=== PATIENT | male | born 1945 | race Caucasian/White ===

== ENCOUNTER 2016-12-07 14:03 | Observation (INO) | payer MEDICARE, OTHER ==
[2016-12-07] MEDS ORDERED: ASPIRIN 81 MG TABLET, CHEWABLE PO ONE (14:13)
[2016-12-07 14:34] LABS: ABSOLUTE EOSINOPHILS # (AUTO) 0.2 10^3/uL (0.0-0.6); ABSOLUTE LYMPHOCYTES (AUTO) 1.3 10^3/uL (0.5-4.7); ABSOLUTE MONOCYTES (AUTO) 0.4 10^3/uL (0.1-1.4); ABSOLUTE NEUT (AUTO) 3.2 10^3/uL (1.7-8.2); BASOPHILS % (AUTO) 0.9 % (0-2); EOSINOPHILS % (AUTO) 4.8 % (0-6); HEMATOCRIT 37.6 % (37.9-51.0); HEMOGLOBIN 13.4 g/dL (13.5-17.0); HGB HCT DIFFERENCE 2.6; LYMPHOCYTES % (AUTO) 24.6 % (13-45); MEAN CORPUSCULAR HEMOGLOBIN 28.6 pg (27.0-33.4); MEAN CORPUSCULAR HGB CONC 35.5 g/dL (32.0-36.0); MEAN CORPUSCULAR VOLUME 80 fl (80-97); RED BLOOD COUNT 4.68 10^6/uL (4.35-5.55); RED CELL DISTRIBUTION WIDTH 13.1 % (11.5-14.0); SEGMENTED NEUTROPHILS % (AUTO) 61.7 % (42-78); WHITE BLOOD COUNT 5.2 10^3/uL (4.0-10.5)
[2016-12-07] MEDS ORDERED: NITROGLYCERIN 2% OINTMENT 1 GM PACKET TP ONE (14:39)
[2016-12-07 14:45] LABS: ALANINE AMINOTRANSFERASE 41 U/L (21-72); ALBUMIN 4.3 g/dL (3.5-5.0); ALKALINE PHOSPHATASE 103 U/L (38-126); ANION GAP 10 (5-19); ASPARTATE AMINO TRANSFERASE 39 U/L (17-59); BILIRUBIN,DIRECT 0.5 mg/dL (0.0-0.4); BLOOD UREA NITROGEN 19 mg/dL (7-20); CALCIUM 9.7 mg/dL (8.4-10.2); CARBON DIOXIDE 33 mmol/L (22-30); CHLORIDE 98 mmol/L (98-107); CREATINE KINASE 95 U/L (55-170); CREATININE RESULT 0.85 mg/dL (0.52-1.25); GLUCOSE 104 mg/dL (75-110); POTASSIUM 3.5 mmol/L (3.6-5.0); SODIUM 140.8 mmol/L (137-145); TOTAL PROTEIN 7.5 g/dL (6.3-8.2)
--- NOTE | 2016-12-07 14:45 | ER Document Report ---
ED Medical Screen (RME) - General Chief Complaint: Chest Pain Stated Complaint: CHEST PAIN Time Seen by Provider: 12/07/16 14:39 TRAVEL OUTSIDE OF THE [place] IN LAST 30 DAYS: No - HPI Patient complains to provider of: CP Onset: Other - Pt with intermittent SSCP times 4 days (had cath 2 yrs ago and was told had some blockages but no stents placed) -- sees Dr. Virgen in [place]. Today, chest tightness got worse and did not resolve despite ASA taken. Denies SOB, N,V, diaphoresis. - Related Data Allergies/Adverse Reactions: No Known Allergies Allergy (Verified 12/07/16 14:27) Home Medications: Current Home Medications Aspirin [Aspirin 81 mg Chewable Tablet] 81 mg PO DAILY 12/07/16 [History] Atenolol/Chlorthalidone [Atenolol-Chlorthalidone 50-25] 1 tab PO DAILY 12/07/16 [History] Esomeprazole Magnesium [Nexium 24Hr] 22.3 mg PO DAILY 12/07/16 [History] Losartan Potassium [Losartan Potassium] 100 mg PO DAILY 12/07/16 [History] Meloxicam [Mobic 15 mg Tablet] 15 mg PO DAILY 12/07/16 [History] [place]-3 Fatty Acids/Fish Oil [Fish Oil 1,000 Mg Capsule] 1 each PO DAILY [History] Potassium Chloride 10 meq PO DAILY 12/07/16 [History] Past Medical History - General Information source: Patient, Relative - Social History Cigarette use (# per day): No Chew tobacco use (# tins/day): No Frequency of alcohol use: None Drug Abuse: None Family history: None - Past Medical History Cardiac Medical History: Reports: Hx Hypertension Renal/ Medical History: Denies: Hx Peritoneal Dialysis GI Medical History: Reports: Hx Gastroesophageal Reflux Disease Past Surgical History: Reports: Hx Appendectomy, Hx Cardiac Catheterization, Hx Cholecystectomy, Hx Orthopedic Surgery - Immunizations Hx Diphtheria, Pertussis, Tetanus Vaccination: No Review of Systems - Review of Systems Constitutional: No symptoms reported EENT: No symptoms reported Cardiovascular: See HPI, Chest pain Respiratory: No symptoms reported Gastrointestinal: No symptoms reported Musculoskeletal: No symptoms reported Hematologic/Lymphatic: No symptoms reported Neurological/Psychological: No symptoms reported -: Yes All other systems reviewed and negative Physical Exam - Vital signs Vitals: Temp Pulse Resp BP Pulse Ox 97.9 F 65 19 168/86 H 98 12/07/16 14:20 12/07/16 14:20 12/07/16 14:20 12/07/16 14:20 12/07/16 14:20 - General General appearance: Appears well In distress: None - Respiratory Respiratory status: No respiratory distress Chest status: Nontender Breath sounds: Normal Chest palpation: Normal - Cardiovascular Rhythm: Regular Heart sounds: Normal auscultation - Abdominal Inspection: Normal Distension: No distension Bowel sounds: Normal Tenderness: Nontender - Neurological Neuro grossly intact: Yes Cognition: Normal Course - Re-evaluation Re-evalutation: 12/07/16 15:21 Pt. feels somewhat better after NTG ointment -- I will call hospitalist for admission - Vital Signs Vital signs: Temp Pulse Resp BP Pulse Ox 97.9 F 65 19 168/86 H 98 12/07/16 14:20 12/07/16 14:20 12/07/16 14:20 12/07/16 14:20 12/07/16 14:20 - Laboratory Result Diagrams: 12/07/16 14:17 12/07/16 14:17 Laboratory results interpreted by me: 12/07/16 12/07/16 14:17 14:17 Hgb 13.4 L Hct 37.6 L Plt Count 137 L Potassium 3.5 L Carbon Dioxide 33 H Direct Bilirubin 0.5 H - Diagnostic Test Radiology reviewed: Pending - EKG Interpretation by [place] EKG shows normal: Sinus rhythm Rate: Normal Rhythm: NSR When compared to previous EKG there are: No significant change - Consults Dr. manzanares Time consulted: 15:22 Consulted provider: will come to ER Critical Care Note - Critical Care Note Total time excluding time spent on procedures (mins): 30 Doctor's Discharge - Discharge Clinical Impression: Chest pain Qualifiers: Chest pain type: unspecified Qualified Code(s): R07.9 - Chest pain, unspecified Condition: Stable Disposition: ADMITTED OBSERVATION
[2016-12-07 14:59] LABS: CREATINE KINASE MB 0.56 ng/mL (<4.55)
[2016-12-07 15:01] LABS: TROPONIN I < 0.012 ng/mL
[2016-12-07] MEDS ORDERED: NITROGLYCERIN 0.4 MG/TAB 25 TAB/BOTTLE SL PRN (15:25)
[2016-12-07] MEDS ORDERED: MAG HYDROX/AL HYDROX/SIMETH SUSP 30 ML UDCUP PO PRN (15:25)
[2016-12-07] MEDS ORDERED: MORPHINE SULFATE 10 MG/ML INJ IV PRN (15:25)
[2016-12-07] MEDS ORDERED: DIAZEPAM 5 MG TABLET PO PRN (15:25)
[2016-12-07] MEDS ORDERED: ONDANSETRON HCL INJ/PF 4 MG/2 ML SDV IV PRN (15:25)
[2016-12-07] MEDS ORDERED: POTASSIUM CHLORIDE 10 MEQ TABLET.SA PO ONE (16:00)
--- NOTE | 2016-12-07 16:01 | RADIOLOGY REPORT (SQ) ---
EXAM DESCRIPTION: CHEST SINGLE VIEW COMPLETED DATE/TIME: 12/07/2016 2:45 pm REASON FOR STUDY: CP COMPARISON: 05/17/2012 EXAM PARAMETERS: NUMBER OF VIEWS: One view. TECHNIQUE: Single frontal radiographic view of the chest acquired. RADIATION DOSE: NA LIMITATIONS: None. FINDINGS: LUNGS AND PLEURA: No opacities, masses or pneumothorax. No pleural effusion. MEDIASTINUM AND HILAR STRUCTURES: No masses. Contour normal. HEART AND VASCULAR STRUCTURES: Heart normal in size. Normal vasculature. BONES: No acute findings. HARDWARE: None in the chest. OTHER: No other significant finding. IMPRESSION: NO ACUTE RADIOGRAPHIC FINDING IN THE CHEST. TECHNICAL DOCUMENTATION: JOB ID: [id number]
--- NOTE | 2016-12-07 16:12 | ER Document Report ---
ED Cardiac - General Chief Complaint: Chest Pain Stated Complaint: CHEST PAIN Time Seen by Provider: 12/07/16 14:39 Mode of Arrival: Ambulatory TRAVEL OUTSIDE OF THE [place] IN LAST 30 DAYS: No - HPI Patient complains to provider of: Chest tightness - pt c/o chest tightness for the past 4 days - Related Data Allergies/Adverse Reactions: No Known Allergies Allergy (Verified 12/07/16 14:27) Home Medications: Current Home Medications Aspirin [Aspirin 81 mg Chewable Tablet] 81 mg PO DAILY 12/07/16 [History] Atenolol/Chlorthalidone [Atenolol-Chlorthalidone 50-25] 1 tab PO DAILY 12/07/16 [History] Ergocalciferol (Vitamin D2) [Drisdol 50,000 unit (1.25MG) Capsule] 50,000 unit PO TU@1000 12/07/16 [History] Esomeprazole Magnesium [Nexium 24Hr] 22.3 mg PO DAILY 12/07/16 [History] Losartan Potassium [Losartan Potassium] 100 mg PO DAILY 12/07/16 [History] Meloxicam [Mobic 15 mg Tablet] 15 mg PO DAILY 12/07/16 [History] [place]-3 Fatty Acids/Fish Oil [Fish Oil 1,000 Mg Capsule] 1 each PO DAILY [History] Potassium Chloride 10 meq PO DAILY 12/07/16 [History] Past Medical History - General Information source: Patient, Relative - Social History Smoking Status: Never Smoker Chew tobacco use (# tins/day): No Frequency of alcohol use: None Drug Abuse: None Family History: None Patient has suicidal ideation: No Patient has homicidal ideation: No - Past Medical History Cardiac Medical History: Reports: Hx Hypertension Renal/ Medical History: Denies: Hx Peritoneal Dialysis GI Medical History: Reports: Hx Gastroesophageal Reflux Disease Past Surgical History: Reports: Hx Appendectomy, Hx Cardiac Catheterization, Hx Cholecystectomy, Hx Orthopedic Surgery - Immunizations Hx Diphtheria, Pertussis, Tetanus Vaccination: No Review of Systems - Review of Systems Constitutional: No symptoms reported EENT: No symptoms reported Cardiovascular: See HPI, Chest pain Respiratory: No symptoms reported Physical Exam - Vital signs Vitals: Temp Pulse Resp BP Pulse Ox 97.9 F 65 19 168/86 H 98 12/07/16 14:20 12/07/16 14:20 12/07/16 14:20 12/07/16 14:20 12/07/16 14:20 - General General appearance: Appears well In distress: None - Respiratory Respiratory status: No respiratory distress Breath sounds: Normal - Cardiovascular Rhythm: Regular Heart sounds: Normal auscultation - Abdominal Inspection: Normal Tenderness: Nontender Course - Re-evaluation Re-evalutation: 12/07/16 16:10 pt. feels better after nitropaste -- will call hospitalist for admission - Vital Signs Vital signs: Temp Pulse Resp BP Pulse Ox 97.9 F 65 22 H 150/75 H 95 12/07/16 14:20 12/07/16 14:20 12/07/16 15:02 12/07/16 15:02 12/07/16 15:02 - Laboratory Result Diagrams: 12/07/16 14:17 12/07/16 14:17 Laboratory results interpreted by me: 12/07/16 12/07/16 14:17 14:17 Hgb 13.4 L Hct 37.6 L Plt Count 137 L Potassium 3.5 L Carbon Dioxide 33 H Direct Bilirubin 0.5 H - Diagnostic Test Radiology reviewed: Pending - EKG Interpretation by [place] EKG shows normal: Sinus rhythm Rate: Normal Rhythm: NSR - Consults Dr. manzanares Time consulted: 16:11 Consulted provider: will come to ER Critical Care Note - Critical Care Note Total time excluding time spent on procedures (mins): 30 Discharge - Discharge Clinical Impression: Chest pain Qualifiers: Chest pain type: unspecified Qualified Code(s): R07.9 - Chest pain, unspecified Condition: Stable Disposition: ADMITTED OBSERVATION Referrals: ROSEANNA MCCABE MD [Primary Care Provider] - Follow up as needed
[2016-12-07] MEDS ORDERED: NORMAL SALINE 1000 ML 1,000 ML IV PRN (16:16)
--- NOTE | 2016-12-07 16:22 | PDOC H&P ---
History of Present Illness Admission Date/PCP: 12/07/16 ros History of Present Illness: SAI SPENCE is a 71 year old male with a PMH of HTN, BPH, Gerd who presents to the emergency department with chest pain. Patient reports that Thursday night while he was sleeping he had some chest pain that woke him up it was sharp substernal and did not radiate. He reports he went back to sleep. In the morning he felt some slight tightness in his chest. He reports this discomfort did not radiate, it was not exacerbated or alleviated by anything. He reports that it occasionally improved on its own and occasionally he would have some additional sharp pains with it. He denied any associated shortness of breath, diaphoresis, nausea, vomiting. He denies any changes to his medications. He does report that he feels his GERD is in adequately controlled. He does report he gets up 3 or 4 times a night to go to the bathroom and initially began taking a [id number] prostate supplement. His last cardiac catheterization was in 2014 and he has never had a stent placed. reports concerns about his perseveration about his illnesses. 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 GI Medical History: Reports: Gastroesophageal Reflux Disease Past Surgical History Past Surgical History: Reports: Appendectomy, Cardiac Catheterization, Cholecystectomy, Orthopedic Surgery, Tonsillectomy, Other - Left eye enucleation Social History Smoking Status: Never Smoker Frequency of Alcohol Use: Rare Hx Recreational Drug Use: No Hx Prescription Drug Abuse: No - Advance Directive Resuscitation Status: Full Code Surrogate healthcare decision maker:: , Q[place] Family History Family History: CAD, Hypertension, Malignancy Parental Family History Reviewed: Yes Children Family History Reviewed: Yes Sibling(s) Family History Reviewed.: Yes Medication/Allergy Home Medications: Aspirin [Aspirin 81 mg Chewable Tablet] 81 mg PO DAILY 12/07/16 Atenolol/Chlorthalidone [Atenolol-Chlorthalidone 50-25] 1 tab PO DAILY 12/07/16 Ergocalciferol (Vitamin D2) [Drisdol 50,000 unit (1.25MG) Capsule] 50,000 unit PO TU@1000 12/07/16 Esomeprazole Magnesium [Nexium 24Hr] 22.3 mg PO DAILY 12/07/16 Losartan Potassium [Losartan Potassium] 100 mg PO DAILY 12/07/16 Meloxicam [Mobic 15 mg Tablet] 15 mg PO DAILY 12/07/16 [place]-3 Fatty Acids/Fish Oil [Fish Oil 1,000 Mg Capsule] 1 each PO DAILY Potassium Chloride 10 meq PO DAILY 12/07/16 Allergies/Adverse Reactions: No Known Allergies Allergy (Verified 12/07/16 14:27) Review of Systems Constitutional: ABSENT: chills, fever(s), headache(s), weight gain, weight loss Eyes: ABSENT: visual disturbances Ears: ABSENT: hearing changes Cardiovascular: PRESENT: chest pain. ABSENT: dyspnea on exertion, edema, orthropnea, palpitations Respiratory: ABSENT: cough, dyspnea, hemoptysis, sputum Gastrointestinal: ABSENT: abdominal pain, constipation, diarrhea, hematemesis, hematochezia, melena, nausea, vomiting Genitourinary: PRESENT: difficulty urinating, nocturia. ABSENT: dysuria, hematuria Musculoskeletal: ABSENT: joint swelling Integumentary: ABSENT: rash, wounds Neurological: ABSENT: abnormal gait, abnormal speech, confusion, dizziness, focal weakness, syncope Psychiatric: PRESENT: anxiety. ABSENT: depression, homidical ideation, suicidal ideation Endocrine: ABSENT: cold intolerance, heat intolerance, polydipsia, polyuria Hematologic/Lymphatic: ABSENT: easy bleeding, easy bruising Physical Exam Vital Signs: Temp Pulse Resp BP Pulse Ox 97.9 F 65 19 168/86 H 98 12/07/16 14:20 12/07/16 14:20 12/07/16 14:20 12/07/16 14:20 12/07/16 14:20 Intake & Output 12/06/16 12/07/16 12/08/16 06:59 06:59 06:59 Weight 115.666 kg General appearance: PRESENT: no acute distress, well-developed, well-nourished Head exam: PRESENT: atraumatic, normocephalic Eye exam: PRESENT: conjunctiva pink, EOMI. ABSENT: PERRLA - Left eye is glass, scleral icterus Ear exam: PRESENT: normal external ear exam Mouth exam: PRESENT: dry mucosa, tongue midline Neck exam: ABSENT: JVD, lymphadenopathy, thyromegaly, tracheal deviation Respiratory exam: PRESENT: clear to auscultation zara, symmetrical, unlabored. ABSENT: rales, rhonchi, wheezes Cardiovascular exam: PRESENT: RRR, +S1, +S2. ABSENT: diastolic murmur, rubs, systolic murmur Pulses: PRESENT: normal dorsalis pedis pul Vascular exam: PRESENT: normal capillary refill GI/Abdominal exam: PRESENT: normal bowel sounds, soft. ABSENT: distended, firm , guarding, mass, Ramírez's sign, organolmegaly, rebound, tenderness Rectal exam: PRESENT: deferred Extremities exam: PRESENT: full ROM. ABSENT: calf tenderness, clubbing, pedal edema Neurological exam: PRESENT: alert, awake, oriented to person, oriented to place , oriented to time, oriented to situation, CN II-XII grossly intact. ABSENT: motor sensory deficit Psychiatric exam: PRESENT: anxious, appropriate affect. ABSENT: homicidal ideation, suicidal ideation Skin exam: PRESENT: dry, intact, warm. ABSENT: cyanosis, rash Results Laboratory Results: 12/07/16 14:17 12/07/16 14:17 12/07/16 12/07/16 14:17 14:17 WBC 5.2 RBC 4.68 Hgb 13.4 L Hct 37.6 L MCV 80 MCH 28.6 MCHC 35.5 RDW 13.1 Plt Count 137 L Seg Neutrophils % 61.7 Lymphocytes % 24.6 Monocytes % 8.0 Eosinophils % 4.8 Basophils % 0.9 Absolute Neutrophils 3.2 Absolute Lymphocytes 1.3 Absolute Monocytes 0.4 Absolute Eosinophils 0.2 Absolute Basophils 0.0 Sodium 140.8 Potassium 3.5 L Chloride 98 Carbon Dioxide 33 H Anion Gap 10 BUN 19 Creatinine 0.85 Est GFR ( Amer) > 60 Est GFR (Non-Af Amer) > 60 Glucose 104 Calcium 9.7 Total Bilirubin 1.0 AST 39 ALT 41 Alkaline Phosphatase 103 Total Protein 7.5 Albumin 4.3 12/07/16 12/07/16 14:17 14:17 Creatine Kinase 95 CK-MB (CK-2) 0.56 Troponin I < 0.012 Assessment & Plan - Diagnosis (1) Chest pain Qualifiers: Chest pain type: unspecified Qualified Code(s): R07.9 - Chest pain, unspecified Is this a current diagnosis for this admission?: Yes Plan: Place patient on observation. Patient reports his last cardiac catheterization was 2 years ago. He did not have any stents placed at that time. Continue patient on aspirin, atenolol, Cozaar and plot cardiac enzymes. Place patient for stress test. (2) GERD (gastroesophageal reflux disease) Qualifiers: Esophagitis presence: esophagitis presence not specified Qualified Code(s) : K21.9 - Gastro-esophageal reflux disease without esophagitis Is this a current diagnosis for this admission?: Yes Plan: Patient reports he does not feel this is adequately controlled. Will give GI cocktail 1. Will increase to PPI twice daily (3) ELENI (obstructive sleep apnea) Is this a current diagnosis for this admission?: Yes Plan: Patient is noncompliant with CPAP (4) BPH (benign prostatic hyperplasia) Qualifiers: Lower urinary tract symptom presence: symptoms present Lower urinary tract symptom detail: nocturia Qualified Code(s): N40.1 - Benign prostatic hyperplasia with lower urinary tract symptoms; R35.1 - Nocturia Is this a current diagnosis for this admission?: Yes Plan: Will initiate patient on Flomax and if his blood pressure remains uncontrolled Cardura. (5) HTN (hypertension) Qualifiers: Hypertension type: essential hypertension Qualified Code(s): I10 - Essential (primary) hypertension Is this a current diagnosis for this admission?: Yes Plan: Patient is on atenolol and Cozaar as well as chlorthalidone. He is poorly controlled and will consider the at addition of Cardura (6) Anxiety about health Is this a current diagnosis for this admission?: Yes Plan: Give patient 1 time dose of Valium now - Time Time Spent: 50 to 70 Minutes Medications reviewed and adjusted accordingly: Yes Anticipated discharge: Home Within: within 24 hours - Inpatient Certification Based on my medical assessment, after consideration of the patient's comorbidities, presenting symptoms, or acuity I expect that the services needed warrant INPATIENT care.: No I certify that my determination is in accordance with my understanding of Medicare's requirements for reasonable and necessary INPATIENT services [42 CFR 412.3e].: No Medical Necessity: Need For Continuous Telemetry Monitoring Post Hospital Care: D/C Newswriter Documentation
[2016-12-07] MEDS ORDERED: LIDOCAINE 2% VISCOUS SOLN 20 ML UDCUP PO ONE (16:30)
[2016-12-07] MEDS ORDERED: METOCLOPRAMIDE HCL ORAL SOLN 10 MG/10 ML UDCUP PO ONE (16:30)
[2016-12-07] MEDS ORDERED: LANSOPRAZOLE 30 MG TAB.RAP.DR PO ONE (16:30)
[2016-12-07] MEDS ORDERED: DIAZEPAM 5 MG TABLET PO ONE (16:30)
[2016-12-07] MEDS ORDERED: MAG HYDROX/AL HYDROX/SIMETH SUSP 30 ML UDCUP PO ONE (16:30)
[2016-12-07] MEDS ORDERED: MAGNESIUM SULFATE/D5W 1 GM/100 ML RTUPB IV ONE (16:45)
[2016-12-07 21:27] LABS: CREATINE KINASE MB 0.49 ng/mL (<4.55)
[2016-12-07 21:31] LABS: TROPONIN I < 0.012 ng/mL
[2016-12-07] MEDS ORDERED: ATORVASTATIN CALCIUM 80 MG TABLET PO SCH (22:00)
--- NOTE | 2016-12-07 23:38 | EKG REPORT ---
SEVERITY:- NORMAL ECG - SINUS RHYTHM : Confirmed by: Julio Henao 07-Dec-2016 23:37:38
[2016-12-08 03:32] LABS: CREATINE KINASE MB 0.27 ng/mL (<4.55)
[2016-12-08 03:35] LABS: TROPONIN I < 0.012 ng/mL
[2016-12-08 06:38] LABS: CHOLESTEROL 148.12 mg/dL (0-200); CREATINE KINASE 64 U/L (55-170); Direct HDL 25 mg/dL (>40); TRIGLYCERIDES 236 mg/dL (<150)
[2016-12-08 06:49] LABS: DIRECT LDL 70 mg/dL (<100)
[2016-12-08 06:53] LABS: VLDL CHOLESTEROL 47.2 mg/dL (10-31)
[2016-12-08 09:08] LABS: CREATINE KINASE MB 0.23 ng/mL (<4.55)
--- NOTE | 2016-12-08 09:13 | EKG REPORT ---
SEVERITY:- ABNORMAL ECG - SINUS RHYTHM FIRST DEGREE AV BLOCK : Confirmed by: Clive Hampton MD 08-Dec-2016 09:12:33
[2016-12-08 09:27] LABS: TROPONIN I < 0.012 ng/mL
[2016-12-08] MEDS ORDERED: KETOROLAC TROMETHAMINE INJ/PF 30 MG/1 ML SDV IV ONE (09:42)
[2016-12-08] MEDS ORDERED: ASPIRIN 325 MG TABLET, ENT COATED PO SCH (10:00)
[2016-12-08] MEDS ORDERED: POTASSIUM CHLORIDE 10 MEQ TABLET.SA PO SCH (10:00)
[2016-12-08] MEDS ORDERED: ASPIRIN 81 MG TABLET, CHEWABLE PO SCH (10:00)
[2016-12-08] MEDS ORDERED: LANSOPRAZOLE 15 MG TAB.RAP.DR PO SCH (10:00)
[2016-12-08] MEDS ORDERED: ESOMEPRAZOLE MAGNESIUM 22.3 MG PO SCH (10:00)
[2016-12-08] MEDS ORDERED: CHLORTHALIDONE 25 MG TABLET PO SCH (10:00)
[2016-12-08] MEDS ORDERED: (PENDING PHARMACY ID) (Omega-3 Fatty Acids/Fish Oil [Fish Oil 1,000 Mg Capsule] 1 EACH) PO SCH (10:00)
[2016-12-08] MEDS ORDERED: OMEGA-3 ACID ETHYL ESTERS 1 GM CAPSULE PO SCH (10:00)
[2016-12-08] MEDS ORDERED: (PENDING PHARMACY ID) (Losartan Potassium [Losartan Potassium] 100 MG) PO SCH (10:00)
[2016-12-08] MEDS ORDERED: CHLORTHALIDONE PO SCH (10:00)
[2016-12-08] MEDS ORDERED: ATENOLOL PO SCH (10:00)
[2016-12-08] MEDS ORDERED: LOSARTAN POTASSIUM 50 MG TABLET PO SCH (10:00)
[2016-12-08] MEDS ORDERED: ATENOLOL 50 MG TABLET PO SCH (10:00)
[2016-12-08 10:11] VITALS: BP 128/65
[2016-12-08] MEDS ORDERED: KETOROLAC TROMETHAMINE INJ/PF 30 MG/1 ML SDV IM ONE (11:00)
--- NOTE | 2016-12-08 16:11 | PDOC DISCHARGE SUMMARY ---
General - Admit/Disc Date/PCP Admission Date/Primary Care Provider: 12/07/16 16:11 ROSEANNA MCCABE MD Discharge Date: 12/08/16 - Discharge Diagnosis (1) Chest pain Is this a current diagnosis for this admission?: Yes (2) GERD (gastroesophageal reflux disease) Is this a current diagnosis for this admission?: Yes (3) ELENI (obstructive sleep apnea) Is this a current diagnosis for this admission?: Yes (4) BPH (benign prostatic hyperplasia) Is this a current diagnosis for this admission?: Yes (5) HTN (hypertension) Is this a current diagnosis for this admission?: Yes (6) Severe obesity (BMI 35.0-35.9 with comorbidity) Is this a current diagnosis for this admission?: Yes - Additional Information Resuscitation Status: Full Code Discharge Diet: Cardiac Discharge Activity: Activity As Tolerated, Slowly Increase Activity, Walk Frequently Home Medications: Aspirin [Aspirin 81 mg Chewable Tablet] 81 mg PO DAILY 12/07/16 Atenolol/Chlorthalidone [Atenolol-Chlorthalidone 50-25] 1 tab PO DAILY 12/07/16 Ergocalciferol (Vitamin D2) [Drisdol 50,000 unit (1.25MG) Capsule] 50,000 unit PO TU@1000 12/07/16 Losartan Potassium 100 mg PO DAILY 12/07/16 Meloxicam [Mobic 15 mg Tablet] 15 mg PO DAILY 12/07/16 [place]-3 Fatty Acids/Fish Oil [Fish Oil 1,000 mg Capsule] 1 each PO DAILY Potassium Chloride 10 meq PO DAILY 12/07/16 Dexlansoprazole [Dexilant 30 mg Capsule] 30 mg PO BID #60 lisa. 12/08/16 History of Present Illness History of Present Illness: SAI SPENCE is a 71 year old male with a PMH of HTN, BPH, Gerd who presents to the emergency department with chest pain. Patient reports that Thursday night while he was sleeping he had some chest pain that woke him up it was sharp substernal and did not radiate. He reports he went back to sleep. In the morning he felt some slight tightness in his chest. He reports this discomfort did not radiate, it was not exacerbated or alleviated by anything. He reports that it occasionally improved on its own and occasionally he would have some additional sharp pains with it. He denied any associated shortness of breath, diaphoresis, nausea, vomiting. He denies any changes to his medications. He does report that he feels his GERD is in adequately controlled. He does report he gets up 3 or 4 times a night to go to the bathroom and initially began taking a [id number] prostate supplement. His last cardiac catheterization was in 2014 and he has never had a stent placed. reports concerns about his perseveration about his illnesses. Hospital Course Hospital Course: Patient was placed on telemetry and ruled out for acute coronary syndrome. Patient still had some chest discomfort which was felt to be secondary to her recent increase in activity in particular attempting to overall an older vehicle. Patient was feeling improved. He did however admit that his over-the- counter Nexium was not improving his GERD. Patient was given prescription for Dexilant. Additionally, patient was noted to have an exceptionally low HDL. I discussed this patient with length and recommended exercise for him. was present for counseling on behavior modification. Patient is advised to follow with his weigher alloy for an outpatient stress test. Physical Exam Vital Signs: Temp Pulse Resp BP Pulse Ox 98.0 F 66 17 128/65 H 99 12/08/16 10:08 12/08/16 10:08 12/08/16 10:08 12/08/16 10:08 12/08/16 10:08 Intake & Output 12/07/16 12/08/16 12/09/16 06:59 06:59 06:59 Intake Total 1356 Balance 1356 Weight 117.8 kg Exam: General appearance: PRESENT: no acute distress, well-developed, well-nourished Head exam: PRESENT: atraumatic, normocephalic Eye exam: PRESENT: conjunctiva pink, EOMI. ABSENT: PERRLA - Left eye is glass, scleral icterus Ear exam: PRESENT: normal external ear exam Mouth exam: PRESENT: moist mucosa, tongue midline Neck exam: ABSENT: JVD, lymphadenopathy, thyromegaly, tracheal deviation Respiratory exam: PRESENT: clear to auscultation zara, symmetrical, unlabored. ABSENT: rales, rhonchi, wheezes Cardiovascular exam: PRESENT: RRR, +S1, +S2. ABSENT: diastolic murmur, rubs, systolic murmur GI/Abdominal exam: PRESENT: normal bowel sounds, soft. ABSENT: distended, firm , guarding, mass, Ramírez's sign, organolmegaly, rebound, tenderness Extremities exam: PRESENT: full ROM. ABSENT: calf tenderness, clubbing, pedal edema Neurological exam: PRESENT: alert, awake, oriented to person, oriented to place , oriented to time, oriented to situation, CN II-XII grossly intact. ABSENT: motor sensory deficit Psychiatric exam: PRESENT: anxious, appropriate affect. ABSENT: homicidal ideation, suicidal ideation Skin exam: PRESENT: dry, intact, warm. ABSENT: cyanosis, rash Results Laboratory Results: 12/08/16 06:09 Triglycerides 236 H Cholesterol 148.12 LDL Cholesterol Direct 70 VLDL Cholesterol 47.2 H HDL Cholesterol 25 L 12/07/16 12/08/16 12/08/16 20:45 02:43 06:09 Creatine Kinase 64 CK-MB (CK-2) 0.49 0.27 Troponin I < 0.012 < 0.012 12/08/16 08:09 Creatine Kinase CK-MB (CK-2) 0.23 Troponin I < 0.012 Impressions: Chest X-Ray 12/07/16 14:13 IMPRESSION: NO ACUTE RADIOGRAPHIC FINDING IN THE CHEST. Qualifiers PATEINT BEING DISCHARGED WITH ANY OF THE FOLLOWING DIAGNOSIS?: No Plan Time Spent: Less than 30 Minutes
== END 2016-12-08 11:00 | disposition home or self-care (01) ==
LOC: ER 14:03 → EH 16:11 → 4N 17:29
PROVIDERS: ADMIT Family Medicine; ATTEND Family Medicine
DX: R07.89 Other chest pain (principal); K21.9 Gastro-esophageal reflux disease without esophagitis; G47.33 Obstructive sleep apnea (adult) (pediatric); N40.1 Benign prostatic hyperplasia with lower urinary tract symptoms; R35.1 Nocturia; I10 Essential (primary) hypertension; E66.01 Morbid (severe) obesity due to excess calories; F41.8 Other specified anxiety disorders; Z68.35 Body mass index [BMI] 35.0-35.9, adult; Z79.82 Long term (current) use of aspirin; Z79.899 Other long term (current) drug therapy; Z90.49 Acquired absence of other specified parts of digestive tract; Z82.49 Family history of ischemic heart disease and other diseases of the circulatory system; Z80.9 Family history of malignant neoplasm, unspecified; Z91.14 Patient's other noncompliance with medication regimen
CPT/HCPCS: 93005 ×2; 99291; 96365; 36415 ×2; 82553 ×2; 82550 ×2; 83735; 85025; 80053; 84484 ×2; 80061; 71010; 93010 ×2; G0378 ×3; A9270 ×7; J3490; J1885; J3475

== ENCOUNTER 2016-12-22 09:27 | Day surgery (SDC) | payer MEDICARE, OTHER ==
[~2016-12-22 09:27] MED LIST: PROPOFOL INJ 200 MG/20 ML VIAL IV ONE
[2016-12-22 11:33] VITALS: BP 122/67
--- NOTE | 2016-12-22 11:55 | Operative Report ---
Operative Report DATE OF SURGERY: 12/22/16 Operative Report: The risks benefits and alternatives of the procedure explained to the patient in detail and informed consent is obtained.A GIF Olympus video scope was inserted into the patient's mouth and hypopharynx, the esophagus is identified intubated and insufflated, the scope was then advanced through the esophagus stomach and duodenum, retroflexion maneuver is done ,the esophagus stomach and first and second portions of the duodenum examined PREOPERATIVE DIAGNOSIS: Gastroesophageal reflux disease, rule out Mark's esophagus. Epigastric pain POSTOPERATIVE DIAGNOSIS: Gastritis status post biopsy rule out Helicobacter pylori OPERATION: EGD with biopsy SURGEON: BERHANE GRADY ANESTHESIA: LMAC TISSUE REMOVED OR ALTERED: Gastric mucosal specimen obtained to rule out Helicobacter pylori COMPLICATIONS: None. ESTIMATED BLOOD LOSS: None. INTRAOPERATIVE FINDINGS: As described above. No evidence of Mark's esophagus. PROCEDURE: Patient tolerated procedure well. No immediate postprocedure complications are noted. Patient discharged in good condition. Discharge date 12/22/2016. Discharge diet: Regular. Discharge activity: Regular. 2-3 week follow-up to discuss findings. Patient is instructed to call the office or proceed to the emergency room should there be any further problems or questions. We will wait on biopsies.
== END 2016-12-22 11:33 | disposition home or self-care (01) ==
LOC: END 09:27
PROVIDERS: ATTEND Internal Medicine Gastroenterology
PROC: 0DB68ZX Excision of Stomach, Via Natural or Artificial Opening Endoscopic, Diagnostic (ICD-10-PCS; principal; 2016-12-22 12:00)
DX: K29.50 Unspecified chronic gastritis without bleeding (principal); Z87.891 Personal history of nicotine dependence; Z79.82 Long term (current) use of aspirin; Z79.899 Other long term (current) drug therapy
CPT/HCPCS: 43239; 88305 ×2; J2704; 740

== ENCOUNTER → 2017-09-14 | Outpatient (CLI) | payer MEDICARE, OTHER ==
--- NOTE | 2017-09-14 09:07 | RADIOLOGY REPORT (SQ) ---
EXAM DESCRIPTION: CHEST 2 VIEWS COMPLETED DATE/TIME: 09/14/2017 8:59 am REASON FOR STUDY: SHORTNESS OF BREATH COMPARISON: 05/17/2012 EXAM PARAMETERS: NUMBER OF VIEWS: two views TECHNIQUE: Digital Frontal and Lateral radiographic views of the chest acquired. RADIATION DOSE: NA LIMITATIONS: none FINDINGS: LUNGS AND PLEURA: No opacities, masses or pneumothorax. No pleural effusion. MEDIASTINUM AND HILAR STRUCTURES: No masses or contour abnormalities. HEART AND VASCULAR STRUCTURES: Heart normal size. No evidence for failure. BONES: No acute findings. HARDWARE: None in the chest. OTHER: No other significant finding. IMPRESSION: 1 No significant interval changes since the prior study dated 05/17/2012. No acute findi ngs. TECHNICAL DOCUMENTATION: JOB ID: [id number] [employer]- All Rights Reserved Reading location - IP/workstation name: [email or web address]
== END ==
LOC: RAD 08:37
PROVIDERS: ATTEND Internal Medicine
DX: R06.02 Shortness of breath (principal)
CPT/HCPCS: 71046

== ENCOUNTER → 2018-07-28 | Outpatient (CLI) | payer MEDICARE, OTHER ==
--- NOTE | 2018-07-28 12:24 | XCELERA REPORT ---
[address] [place] [facility] [id number] Lower Extremity Venous Evaluation Procedure: Color flow and duplex imaging of the veins of the left lower extremity as well as the right Common Femoral vein. Right Sided Venous Evaluation The right common femoral vein is fully compressible. Spontaneous and phasic flow is present in the right common femoral vein. Left Sided Venous Evaluation Normal vessel filling wall to wall, compression and augmentation as well as Colour flow down to the infrageniculate veins. Interpretation Summary No duplex evidence of DVT or obstruction in the left lower extremity nor in the right Common Femoral vein. Name: SAI SPENCE Bart Age: 73 yrs Gender: Male : 1945 Patient Status: Outpatient Patient Location: Study Date: 07/28/2018 11:13 AM Reason For Study: LLE PAIN Ordering Physician: DALIA FLOWERS Performed By: Holli Freitas : DALIA FLOWERS > Maicol Coyle
== END ==
LOC: SP 10:14
PROVIDERS: ATTEND Physician Assistant
DX: M79.662 Pain in left lower leg (principal)
CPT/HCPCS: 93971